=== PATIENT | male | born 1990 | race Caucasian/White ===

== ENCOUNTER → 2019-04-16 13:46 | Outpatient (CLI) | payer OTHER, SELFPAY ==
[2019-04-16 14:33] LABS: Chloride 101 mmol/L (98-107); Sodium 139 mmol/L (136-145)
[2019-04-16 14:34] LABS: Potassium 4.9 mmoL/L (3.5-5.1)
[2019-04-16 14:36] LABS: Alanine Aminotransferase 43 U/L (12-78); Albumin Level 4.6 g/dl (3.5-5.0); Albumin/Globulin Ratio 1.3 (1.1-1.8); Alkaline Phosphatase 86 U/L (38-126); Anion Gap 14.9 mEq/L (5-15); Aspartate Amino Transferase 34 U/L (17-59); Bilirubin,Total 0.6 mg/dl (0.2-1.3); Blood Urea Nitrogen 13 mg/dl (9-20); Carbon Dioxide 28 mmol/L (22.0-30.0); Cholesterol 242 mg/dl (140-200); Estimated Glomerular Filt Rate 88 ml/min (>60); GFR (African American) 106 ML/MIN (>60); Globulin 3.5 g/dL (1.3-3.2); Total Protein,Serum 8.1 g/dl (6.3-8.2); Triglycerides 121 mg/dl (30-150); VLDL Cholesterol 24 mg/dL (0-40)
[2019-04-16 14:37] LABS: Calcium 10.1 mg/dl (8.4-10.2); Chol/HDL Ratio 6.2 (1-3.5); Glucose 94 mg/dl (74-100); HDL Cholesterol 39 mg/dl (40-60)
[2019-04-16 14:42] LABS: Basophils # 0.1 K/mm3 (0-0.2); Basophils % 0.6 % (0.1-2.0); Eosinophils # 0.2 K/mm3 (0.0-0.4); Eosinophils % 1.7 % (0.1-12.0); Hematocrit 48.7 % (42.0-52.0); Hemoglobin 16.4 g/dL (14.1-18.0); Lymphocytes # 2.3 K/mm3 (0.7-4.5); Lymphocytes % 24.6 % (10-50); Mean Corpuscular HGB Conc 33.6 g/dL (31.8-35.4); Mean Corpuscular Hemoglobin 28.9 pg (27.0-31.2); Mean Corpuscular Volume 85.9 fl (80-94); Mean Platelet Volume 8.4 fl (7.4-10.4); Monocytes # 0.5 K/mm3 (0.1-1.0); Monocytes % 5.1 % (1.7-9.3); Neutrophils # 6.4 K/mm3 (1.8-7.8); Platelet Count 299 K/mm3 (142-424); Red Blood Count 5.67 M/mm3 (4.60-6.20); Red Cell Distribution Width 12.5 % (11.5-17.5); White Blood Count 9.4 K/mm3 (4.8-10.8)
[2019-04-16 14:56] LABS: T4 (Thyroxine) 10.8 ug/dl (5.53-11.0)
[2019-04-16 15:09] LABS: Thyroid Stimulating Hormone 0.95 uIU/mL (0.465-4.68)
[2019-04-19 09:35] LABS: Vitamin D 25 Hydroxy 27.7 ng/mL (30.0-100.0)
== END ==
PROVIDERS: Visit Provider Nurse Practitioner Family
DX: M25.571 Pain in right ankle and joints of right foot (principal); R05 Cough; R09.89 Other specified symptoms and signs involving the circulatory and respiratory systems; E55.9 Vitamin D deficiency, unspecified; G89.29 Other chronic pain
CPT/HCPCS: 80053; 80061; 82652; 84436; 84443; 85025

== ENCOUNTER 2023-01-27 18:31 | Emergency (ER) | payer OTHER, SELFPAY ==
[2023-01-27 18:33] VITALS: BP 134/85; PULSE 80; RESP 15; TEMP 37; O2SAT 97; BMI 29.9
--- NOTE | 2023-01-27 18:37 | XR_ITS ---
PROCEDURE INFORMATION: Exam: XR Right Hand Exam date and time: 01/27/2023 6:36 PM Age: 32 years old Clinical indication: Injury or trauma; Other: Working incident; Work related; Blunt trauma (contusions or hematomas); Hand; Right; Additional info: Hand trauma TECHNIQUE: Imaging protocol: Radiologic exam of the right hand. Views: 3 or more views. COMPARISON: No relevant prior studies available. FINDINGS: Bones/joints: Oblique fracture of the mid and proximal diaphysis of the 4th metacarpal demonstrating slight 2 mm dorsal medial displacement of the distal fragment without significant angulation. No articular extension. No other fractures. Soft tissues: No gross soft tissue abnormalities. IMPRESSION: Fourth metacarpal fracture.
--- NOTE | 2023-01-27 18:38 | HMH.EDGENADL ---
Discharge Plan Disposition Patient Disposition: Home, Self-Care Condition: Good Chief Complaint: PAIN Prescriptions Prescriptions: No Action No Known Home Medications Referrals Follow up/Referrals: Jeffrey Wild APRN [Primary Care Provider] - See instructions Clinical Impressions Clinical Impression: Fracture of fourth metacarpal bone Instructions Patient Instructions: Hand Fracture Discharge ED Provider: Isaura Medel General Adult HPI General Chief complaint: PAIN Stated complaint: AO/ RT hand inj Time Seen by Provider: 01/27/23 18:34 History of Present Illness HPI narrative: 32-year-old male with no significant past medical history coming in with complaints of hand trauma. Patient notes that he was working with a power drill today with a power drill kicked back around and struck his right hand. Ever since the injury, patient has been having significant swelling and pain of the right hand and every time he makes a fist, he feels cracks and pops. No other trauma anywhere else. Negative blood thinners. Related Data Home Medications Medication Instructions Recorded Confirmed No Known Home Medications 05/04/17 04/16/19 Allergies Allergy/AdvReac Type Severity Reaction Status Date / Time No Known Allergies Allergy Unverified 04/16/19 10:03 [facility] Disclaimer: The information contained in this section may have been updated after the patient was seen, as this information can be updated by other users. Social History Smoking Status: Never smoker alcohol intake: current substance use type: denies use current occupational status: employed Travel in the last 8 weeks: None ROS Obtained: Yes All systems reviewed & no additional complaints except as documented Physical Exam General General appearance: alert and in no apparent distress Head Head exam: atraumatic, normocephalic and normal inspection Eye Eye exam: Present normal appearance, PERRL and EOMI; Absent scleral icterus or nystagmus ENT ENT exam: Present normal exam, mucous membranes moist and normal external ear exam Neck Neck exam: Present normal inspection, full ROM and trachea midline Chest Chest inspection: Present normal inspection and symmetric chest wall rise; Absent tenderness Respiratory Respiratory exam: Present normal lung sounds bilaterally; Absent respiratory distress, wheezes or accessory muscle use Cardiovascular Cardiovascular exam: Present regular rate, normal rhythm and normal heart sounds Abdominal Exam Abdominal exam: Present soft; Absent distention, tenderness, guarding, rebound, rigidity, trauma, ascites or pulsatile mass exam: Present deferred Extremities Exam Extremities exam: Present normal inspection and full ROM; Absent tenderness Back Exam Back exam: Present normal inspection and full ROM; Absent tenderness Neurological Exam Neurological exam: Present alert, oriented X3, normal gait and motor sensory deficit Psychiatric Psychiatric exam: Present normal affect and normal mood Skin Skin exam: Present warm, dry and normal color Medical Decision Making Medical Records Medical records reviewed: Yes I reviewed the patient's medical records. Dale Inquiry Pt receiving controlled substance: No Vital Signs: 01/27/23 18:33 Temperature 98.6 F Temperature Source Oral Pulse Rate [Left Radial] 80 Respiratory Rate 15 Blood Pressure [Right Arm] 134/85 Blood Pressure Mean [Right Arm] 101 02 Sat by Pulse Oximetry 97 Oxygen Delivery Method Room Air Lab Data Lab results reviewed: Yes I reviewed the patient's lab results. Orders (Tests/Meds): ED MEDICATIONS Discontinued Medications Generic Name Dose Route Start Last Admin Trade Name Freq PRN Reason Stop Dose Admin Oxycodone HCl 5 mg 01/27/23 18:37 01/27/23 18:44 Oxycodone 5mg Immediate Release Tablet PO 01/27/23 18:38 5 mg ONCE ONE Administration ORDERS Category Date Time Status
[2023-01-27 18:44] VITALS: BMI 29.9
--- NOTE | 2023-01-27 18:45 | XR_ITS ---
PROCEDURE INFORMATION: Exam: XR Right Wrist Exam date and time: 01/27/2023 6:38 PM Age: 32 years old Clinical indication: Injury or trauma; Other: Working incident; Work related; Blunt trauma (contusions or hematomas); Hand; Right TECHNIQUE: Imaging protocol: Radiologic exam of the right wrist. Views: 3 or more views. COMPARISON: CR Hand R 01/27/2023 6:36 PM FINDINGS: Bones/joints: No wrist fractures. 4th metacarpal diaphyseal fracture again noted, please see hand x-rays. Carpal relationships are normal. Distal radioulnar alignment is normal. No blastic or lytic lesions. No gross erosive changes. Soft tissues: No periostitis or osteolysis. No gross soft tissue abnormalities. No radiopaque foreign bodies. IMPRESSION: 1. No acute findings in the wrist. 2. Please see hand x-rays regarding 4th metacarpal fracture.
[2023-01-27 19:44] VITALS: BP 125/75; PULSE 70; RESP 16; TEMP 36.8; O2SAT 98
== END 2023-01-27 19:47 | disposition home or self-care (01) ==
PROVIDERS: Emergency Provider Emergency Medicine; PCP Nurse Practitioner Family
DX: S62.324A Displaced fracture of shaft of fourth metacarpal bone, right hand, initial encounter for closed fracture (principal); W29.8XXA Contact with other powered hand tools and household machinery, initial encounter
CPT/HCPCS: 73110; 73130; 99284

== ENCOUNTER 2024-04-15 05:02 | Emergency (ER) | payer MEDICAID, SELFPAY ==
[2024-04-15 05:03] VITALS: BP 128/77; PULSE 88; RESP 20; TEMP 36.8; O2SAT 95; BMI 29.2
[2024-04-15] MEDS: NEOMYCIN-POLYMYXIN-HC OTIC SUSP 10ML 10 ML OT (05:17)
[2024-04-15] MEDS: ONDANSETRON 4MG ODT 4 MG SL (05:19)
[2024-04-15 05:23] LABS: Influenza A, PCR Not Detected (NotDetected); Influenza B, PCR Not Detected (NotDetected)
--- NOTE | 2024-04-15 05:29 | ED_ITS ---
Discharge Plan Disposition Patient Disposition: Home, Self-Care Prescriptions Prescriptions: No Action No Known Home Medications Referrals Follow up/Referrals: Melinda Cadena APRN [Primary Care Provider] - See instructions Activity Restrictions/Add. Instructions Additional Instructions/Restrictions: Please use eardrops 4 drops each time, 3-4 times per day, for 7 days. Please follow-up with your primary care provider. Please return to the emergency department if you develop any new or worsening symptoms or become concerned for your health. Clinical Impressions Clinical Impression: COVID-19 Otitis externa Qualifiers: Otitis externa type: other infective Chronicity: acute Laterality: left Qualified Code(s): H60.392 - Other infective otitis externa, left ear Print Language Print Language: Luxembourgish Discharge ED Provider: Dano Tapia Adult HPI General Chief complaint: Upper Respiratory Infection Stated complaint: cough, congestion, left ear pain Time Seen by Provider: 04/15/24 05:05 Mode of Arrival: Ambulatory Source of Information: Patient Limitations: No Limitations Description of Symptoms (Recalled from ER Triage Doc. by RN): PT HERE W/ C/O LEFT SIDED EAR PAIN/BODY ACHES/FEVER/URI SYMPTOMS X5 DAYS History of Present Illness HPI narrative: 33-year-old male without significant past medical history presents for several days of flulike symptoms, has also had a couple days of left ear pain. Denies any difficulty hearing, just pain. No recent antibiotics. Related Data Home Medications ?Medication ?Instructions ?Recorded ?Confirmed No Known Home Medications 05/04/17 04/15/24 Allergies Allergy/AdvReac Type Severity Reaction Status Date / Time No Known Allergies Allergy Unverified 04/16/19 10:03 [facility] Disclaimer: The information contained in this section may have been updated after the patient was seen, as this information can be updated by other users. Social History Smoking Status: Never smoker alcohol intake: current alcohol intake frequency: a few times a month substance use type: denies use current occupational status: employed Travel in the last 8 weeks: None Have you lived/traveled outside [place] in past 30 days?: No Contact w/someone who lives/traveled outside [place] past 30 days?: No Exposure to someone with infectious disease in past 14 days?: No Do you have a fever (greater than 100.4 F or 38 C)?: No Have you tested positive for COVID-19: No Exposed to someone with COVID-19 in past 14 days?: No Do you have a sore throat?: Yes Do you have a cough?: Yes Do you have any weakness?: No Do you have any diarrhea?: No Are you experiencing any unusual bleeding?: No Do you have any muscle aches/pain?: No Do you have any abdominal pain?: No Are you experiencing loss of taste or smell?: No Other Medical History Have you received the Flu Vaccine for this season: No Have you received the Pneumonia Vaccine: No ROS Obtained: Yes All systems reviewed & no additional complaints except as documented Physical Exam General General appearance: alert and in no apparent distress Head Head exam: atraumatic and normocephalic Eye Eye exam: Present normal appearance, PERRL and EOMI ENT ENT exam: Present normal oropharynx, normal external ear exam and other (Left EAC is erythematous, TM appears normal, no mastoid tenderness.) Neck Neck exam: Present normal inspection and full ROM Chest Chest inspection: Present normal inspection and symmetric chest wall rise; Absent tenderness Respiratory Respiratory exam: Present normal lung sounds bilaterally; Absent respiratory distress Cardiovascular Cardiovascular exam: Present regular rate and normal rhythm Abdominal Exam Abdominal exam: Present soft; Absent distention, tenderness or guarding Extremities Exam Extremities exam: Present normal inspection; Absent edema or joint swelling Back Exam Back exam: Present normal inspection; Absent tenderness Neurological Exam Neurological exam: Present alert and oriented X3; Absent motor sensory deficit Psychiatric Psychiatric exam: Present normal affect and normal mood Skin Skin exam: Present warm, dry and normal color Lymphatic Lymphatic Findings: no adenopathy Medical Decision Making Medical Records Medical records reviewed: Yes I reviewed the patient's medical records. Screening: Per USPSTF and CDC recommendations, given the prevalence of disease in our region, it is our hospital?s policy to screen for HIV and viral Hepatitis for all patients aged 18 and over and those with ongoing risk factors. Dale Inquiry Pt receiving controlled substance: No Dale was queried for this patient: No Vital Signs: 04/15/24 05:03 04/15/24 06:11 Temperature 98.2 F 98.3 F Temperature Source Oral Pulse Rate 78 Pulse Rate [Apical] 88 Respiratory Rate 20 20 Blood Pressure 120/87 Blood Pressure [Right Arm] 128/77 Blood Pressure Mean [Right Arm] 94 02 Sat by Pulse Oximetry 95 Oxygen Delivery Method Room Air Room Air Lab Data Lab results reviewed: Yes I reviewed the patient's lab results. Lab Results 04/15/24 05:15: SARS-CoV-2 (PCR) Detected A, Influenza A Untype (PCR) Not detected, Influenza Type B (PCR) Not detected Orders (Tests/Meds): ED MEDICATIONS Discontinued Medications Generic Name Dose Route Start Last Admin Trade Name Sultana PRN Reason Stop Dose Admin Neomycin/Polymyxin/Hydrocortisone 10 ml 04/15/24 05:11 04/15/24 05:17 [id number]-Rx Otic Susp 10ml OT 04/15/24 05:12 10 ml ONCE ONE Administration Ondansetron HCl 4 mg 04/15/24 05:11 04/15/24 05:19 Ondansetron 4mg Odt SL 04/15/24 05:12 4 mg ONCE ONE Administration ORDERS Category Date Time Status Rapid PCR Covid and Flu A/B Stat Lab 04/15/24 05:15 Completed Medical Decision Narrative: 33-year-old male without significant past medical history presents for a few days of flulike illness as well as left ear pain.. History was obtained via interactive discussion with patient. On arrival, patient is [afebrile, hemodynamically stable, satting appropriately, alert, oriented x4, GCS 15], moving all extremities spontaneously. Full physical exam performed and significant for findings consistent with otitis externa, clear lungs bilaterally Differential includes but is not limited to COVID, flu, otitis media, otitis externa, mastoiditis. Patient was given neomycin polymyxin hydrocortisone otic drops for treatment of otitis externa. For symptomatic management and correction of underlying abnormalities. Workup initiated including COVID flu swab. On re-evaluation, patient [remains afebrile, HD stable.] Laboratory workup independently interpreted by me and significant for positive COVID test. Given patient history, exam and workup, patient's presentation most likely represents COVID-19 infection as well as left otitis externa without mastoiditis. Patient was discharged in stable condition with return precautions instructions and eardrops Procedures Risk/Benefits of Procedure(s) Were Explained: Yes Critical Care Critical Care Time Critical Care Time: No
[2024-04-15 05:43] LABS: Coronavirus 19, PCR Detected (NotDetected)
[2024-04-15 06:11] VITALS: BP 120/87; PULSE 78; RESP 20; TEMP 36.8; O2SAT 99
== END 2024-04-15 06:14 | disposition home or self-care (01) ==
PROVIDERS: Emergency Provider Emergency Medicine; PCP Nurse Practitioner Family
DX: U07.1 COVID-19 (principal); H60.92 Unspecified otitis externa, left ear; R05.9 Cough, unspecified; R09.81 Nasal congestion; H92.02 Otalgia, left ear; R52 Pain, unspecified; R50.9 Fever, unspecified
CPT/HCPCS: 87636; 99283; Q0162